=== PATIENT | female | born 1985 | race Caucasian/White ===

== ENCOUNTER 2016-09-28 08:30 | Emergency (ER) | payer OTHER ==
[2016-09-28 08:49] VITALS: BP 133/77
--- NOTE | 2016-09-28 09:21 | UC ---
Throat Pain/Nasal Preet HPI - HPI Summary HPI Summary: sever sore throat x 3 days + fever, chills, body aches, no cough , no nasal congestion . - History of Current Complaint Chief Complaint: UCRespiratory Stated Complaint: SORE THROAT Time Seen by Provider: 09/28/16 09:01 Hx Obtained From: Patient Hx Last Menstrual Period: 09/25/16 ?: No Onset/Duration: Gradual Onset, Lasting Days - 3, Still Present Severity: Severe Cough: None Associated Signs & Symptoms: Positive: Fever. Negative: Wheezing, Sinus Discomfort, Nasal Discharge - Allergies/Home Medications Allergies/Adverse Reactions: Allergies Allergy/AdvReac Type Severity Reaction Status Date / Time No Known Allergies Allergy Verified 09/28/16 08:49 Home Medications: Home Medications [id number] [Nyquil Severe Cold/Flu 5-6.25-10-325 mg/15Ml] 1 liq PO BEDTIME PRN 09/28/16 [History Confirmed 09/28/16] PMH/Surg Hx/FS Hx/Imm Hx Endocrine History Of: Denies: Diabetes, Thyroid Disease, Hyperthyroidism, Hypothyroidism, Dyslipidemia Cardiovascular History Of: Denies: Cardiac Disorders, Hypertension, Pacemaker/ICD, Myocardial Infarction , Congestive Heart Failure, Atrial Fibrillation, Deep Vein Thrombosis, Bleeding Disorders Respiratory History Of: Denies: COPD, Asthma, Bronchitis, Pneumonia, Pulmonary Embolism GI/ History Of: Denies: Gastroesophageal Reflux, Ulcer, Gastrointestinal Bleed, Gall Bladder Disease, Kidney Stones, Diverticulitis, Renal Disease, Urosepsis Neurological History Of: Denies: TIA, CVA, Dementia, Seizures, Migraine Psychological History Of: Denies: Anxiety, Depression, Bipolar Disorder, Schizophrenia, Post Traumatic Stress Disorder Cancer History Of: Denies: Lung Cancer, Colorectal Cancer, Breast Cancer, Prostate Cancer, Cervical Cancer - Surgical History Surgical History: Yes Surgery Procedure, Year, and Place: Right knee surgery and tubal ligation, carpal tunnel - Family History Known Family History: Negative: Cardiac Disease, Respiratory Disease - Social History Alcohol Use: None Substance Use Type: None Smoking Status (MU): Current Some Day Smoker Type: Cigars Amount Used/How Often: 2 cigars daily Have You Smoked in the Last Year: Yes - smokes cigars x 5 years Household Exposure Type: Cigars Review of Systems Constitutional: Fever, Chills, Fatigue Skin: Negative Eyes: Negative ENT: Sore Throat Respiratory: Negative Cardiovascular: Negative Gastrointestinal: Negative Musculoskeletal: Myalgia All Other Systems Reviewed And Are Negative: Yes Physical Exam Triage Information Reviewed: Yes Appearance: Well-Appearing, Well-Nourished, Pain Distress Vital Signs: Initial Vital Signs Temp 99.2 F 09/28/16 08:43 Pulse 116 09/28/16 08:43 Resp 20 09/28/16 08:43 BP 133/77 09/28/16 08:43 Pulse Ox 98 09/28/16 08:43 Vital Signs Reviewed: Yes Eye Exam: Normal Eyes: Positive: Conjunctiva Clear ENT: Positive: Normal ENT inspection, Hearing grossly normal, Pharyngeal erythema, Tonsillar swelling, Tonsillar exudate. Negative: Nasal congestion, Nasal drainage, Trismus, Muffled/hoarse voice Neck exam: Normal Neck: Positive: Supple, Nontender, Enlarged Nodes @ - very enlarged cervical lymphadenopathy Respiratory Exam: Normal Respiratory: Positive: Chest non-tender, Lungs clear, Normal breath sounds Cardiovascular: Positive: No Murmur, Pulses Normal, Tachycardia Abdominal Exam: Normal Abdomen Description: Positive: Nontender, Soft Throat Pain/Nasal Course/Dx - Differential Dx/Diagnosis Provider Diagnoses: strep pharyngitis Discharge - Discharge Plan Condition: Stable Disposition: HOME Prescriptions: Amoxicillin (*) 875 mg PO BID #20 tab Patient Education Materials: Strep Throat (ED) Referrals: Laverne Merchant PA [Primary Care Provider] - 7 Days
== END 2016-09-28 09:45 | disposition home or self-care (01) ==
LOC: UCCORT 08:30
DX: J02.0 Streptococcal pharyngitis (principal); F17.210 Nicotine dependence, cigarettes, uncomplicated
CPT/HCPCS: 87651; 99212; G0463

== ENCOUNTER 2017-10-14 18:00 | Emergency (ER) | payer OTHER ==
[2017-10-14 18:34] VITALS: BP 148/76
--- NOTE | 2017-10-14 20:09 | ED ---
Lower Extremity - HPI Summary HPI Summary: 31 yr old female with the complaint of right ankle pain. Onset two weeks ago. She states she rolled her ankle. She states she has injured the same ankle in the past and did not come in earlier. She came in now because swelling and pain are not resolving with ice and rest. - History of Current Complaint Chief Complaint: UCLowerExtremity Stated Complaint: RIGHT ANKLE PAIN Time Seen by Provider: 10/14/17 19:38 Hx Last Menstrual Period: 08/20/17 Pain Intensity: 5 - Allergies/Home Medications Allergies/Adverse Reactions: Allergies Allergy/AdvReac Type Severity Reaction Status Date / Time No Known Allergies Allergy Verified 10/14/17 18:34 Home Medications: Home Medications Escitalopram Oxalate [Lexapro 20 mg] 20 mg PO DAILY 10/14/17 [History Confirmed 10/14/17] Gabapentin 300 mg PO TID 10/14/17 [History Confirmed 10/14/17] PMH/Surg Hx/FS Hx/Imm Hx Endocrine/Hematology History: Denies: Hx Diabetes, Hx Thyroid Disease Cardiovascular History: Denies: Hx Congestive Heart Failure, Hx Deep Vein Thrombosis, Hx Hypertension , Hx Myocardial Infarction, Hx Pacemaker/ICD Respiratory History: Denies: Hx Asthma, Hx Chronic Obstructive Pulmonary Disease (COPD), Hx Lung Cancer, Hx Pneumonia, Hx Pulmonary Embolism GI History: Denies: Hx Gall Bladder Disease, Hx Gastrointestinal Bleed, Hx Ulcer, Hx Urosepsis History: Denies: Hx Kidney Stones, Hx Renal Disease Neurological History: Denies: Hx Dementia, Hx Migraine, Hx Seizures, Hx Transient Ischemic Attacks (TIA) Psychiatric History: Denies: Hx Anxiety, Hx Depression, Hx Schizophrenia, Hx Bipolar Disorder - Surgical History Surgery Procedure, Year, and Place: Right knee surgery and tubal ligation, carpal tunnel Infectious Disease History: No Infectious Disease History: Denies: Hx Clostridium Difficile, Hx Hepatitis, Hx Human Immunodeficiency Virus (HIV), Hx of Known/Suspected MRSA, Hx Shingles, Hx Tuberculosis, Hx Known/ Suspected VRE, Hx Known/Suspected VRSA, History Other Infectious Disease, Traveled Outside the [place] in Last 30 Days - Family History Known Family History: Negative: Cardiac Disease, Respiratory Disease - Social History Alcohol Use: None Substance Use Type: Reports: None Smoking Status (MU): Never Smoked Tobacco Type: Cigars Amount Used/How Often: 2 cigars daily Have You Smoked in the Last Year: Yes - smokes cigars x 5 years Review of Systems Constitutional: Negative Positive: Other - ankle swelling pain. All Other Systems Reviewed And Are Negative: Yes Physical Exam Triage Information Reviewed: Yes Vital Signs On Initial Exam: Initial Vitals Temp Pulse Resp BP Pulse Ox 97.6 F 74 18 148/76 100 10/14/17 18:31 10/14/17 18:31 10/14/17 18:31 10/14/17 18:31 10/14/17 18:31 Vital Signs Reviewed: Yes Appearance: Positive: Well-Appearing, No Pain Distress Skin: Positive: Warm, Skin Color Reflects Adequate Perfusion Head/Face: Positive: Normal Head/Face Inspection Eyes: Positive: EOMI Neck: Positive: Nontender Cardiovascular: Positive: Pulses are Symmetrical in both Upper and Lower Extremities - intact DP/PT Musculoskeletal: Positive: Strength/ROM Intact, Other - STS over the right Lateral malleolus. Mild tender over same area. Mild tender over base of 5th metatarsal. No tenderness over the proximal fibula or over the medial malleolus. Neurological: Positive: Sensory/Motor Intact, Alert, Oriented to Person Place, Time, CN Intact II-III Psychiatric: Positive: Normal - [place] Coma Scale Best Eye Response: 4 - Spontaneous Best Motor Response: 6 - Obeys Commands Best Verbal Response: 5 - Oriented Coma Scale Total: 15 Diagnostics - Vital Signs Vital Signs Temp Pulse Resp BP Pulse Ox 10/14/17 18:31 97.6 F 74 18 148/76 100 - Laboratory Lab Statement: Any lab studies that have been ordered have been reviewed, and results considered in the medical decision making process. - Radiology right ankle, foot Xray Interpretation: Positive (See Comments) - lateral supporting ligament injury Radiology Interpretation Completed By: Radiologist Lower Extremity Course/Dx - Course Course Of Treatment: 31 yr old with ankle sprain. crutches, splint. Refer to ortho for follow up and her PMD for bp check - Diagnoses Provider Diagnoses: Right ankle sprain Discharge - Discharge Plan Condition: Good Disposition: HOME Patient Education Materials: Ankle Sprain (ED), Hypertension (ED) Referrals: Laverne Merchant PA [Primary Care Provider] - Carson Brown MD [Medical Doctor] - 1 Day Additional Instructions: You must follow up with orthopedic surgery as soon as possible as you have a ligament tear in your ankle. You need to be further evaluated and could require MRI and surgery. Do not delay seeing orthopedic surgery. wear your splint and use the crutches until you are seen by the specialist.
--- NOTE | 2017-10-14 20:37 | RAD ---
Indication: RIGHT ankle pain and swelling following injury 2 weeks ago. Lateral aspect pain. Comparison: No relevant prior exams available on the [facility] [place] for comparison. Technique: AP, mortise, and lateral views RIGHT ankle. AP, lateral, and oblique views RIGHT foot. Report: Soft tissue swelling most prominent over the lateral malleolus. Suggestion of talocrural joint effusion. No fracture or osteochondral lesion evident at the ankle. Os trigonum noted. Negative for fracture at the foot. Normal articular alignment throughout. IMPRESSION: Consider lateral supporting ligament injury given magnitude of soft tissue swelling and suggestion of talocrural joint effusion.
--- NOTE | 2017-10-14 20:37 | RAD ---
Indication: RIGHT ankle pain and swelling following injury 2 weeks ago. Lateral aspect pain. Comparison: No relevant prior exams available on the [facility] [place] PACS for comparison. Technique: AP, mortise, and lateral views RIGHT ankle. AP, lateral, and oblique views RIGHT foot. Report: Soft tissue swelling most prominent over the lateral malleolus. Suggestion of talocrural joint effusion. No fracture or osteochondral lesion evident at the ankle. Os trigonum noted. Negative for fracture at the foot. Normal articular alignment throughout. IMPRESSION: Consider lateral supporting ligament injury given magnitude of soft tissue swelling and suggestion of talocrural joint effusion.
== END 2017-10-14 21:04 | disposition home or self-care (01) ==
LOC: UCCORT 18:00
DX: S93.401A Sprain of unspecified ligament of right ankle, initial encounter (principal); X50.9XXA Other and unspecified overexertion or strenuous movements or postures, initial encounter; Y92.9 Unspecified place or not applicable; F17.290 Nicotine dependence, other tobacco product, uncomplicated
CPT/HCPCS: 99213; G0463

== ENCOUNTER 2018-04-05 10:08 | Emergency (ER) | payer OTHER ==
[2018-04-05 10:43] VITALS: BP 132/77
--- NOTE | 2018-04-05 11:01 | UC ---
Skin Complaint HPI - HPI Summary HPI Summary: Has had sore, red, irritated, weeping rash under bilat breasts for over a month. Tried OTC yeast, abx, powders, and other drying agents without relief. Ate an belarusian muffin and chocolate milk approx 2 hours ago. - History of Current Complaint Chief Complaint: UCRash Time Seen by Provider: 04/05/18 10:41 Stated Complaint: SKIN CONCERN ON CHEST AREA Hx Obtained From: Patient Hx Last Menstrual Period: 04/03/18 ?: No Onset/Duration: Gradual Onset, Lasting Weeks Timing: Constant Pain Intensity: 5 Location: Discrete Character: Redness, Painful Aggravating Factor(s): Clothing, Wet Conditions, Humidity Alleviating Factor(s): Nothing Associated Signs & Symptoms: Positive: Rash - Allergy/Home Medications Allergies/Adverse Reactions: Allergies Allergy/AdvReac Type Severity Reaction Status Date / Time No Known Allergies Allergy Verified 04/05/18 10:37 Review of Systems Constitutional: Negative Skin: Rash Eyes: Negative ENT: Negative Respiratory: Negative Cardiovascular: Negative Gastrointestinal: Negative Genitourinary: Negative Motor: Negative Neurovascular: Negative Musculoskeletal: Negative Neurological: Negative Psychological: Negative Is Patient Immunocompromised?: No All Other Systems Reviewed And Are Negative: Yes PMH/Surg Hx/FS Hx/Imm Hx Psychological History: Depression - Surgical History Surgical History: Yes Surgery Procedure, Year, and Place: L5S1 Fusion, 2017, [place]; Right Carpal Tunnel, 2013, [place]; Tubal Ligation, 2009, [place]; Right Knee Arthroscopy, 2006, [place] - Family History Known Family History: Negative: Cardiac Disease, Respiratory Disease - Social History Lives: With Family Alcohol Use: Occasionally Substance Use Type: None Smoking Status (MU): Light Every Day Tobacco Smoker Type: Cigars Amount Used/How Often: 2 cigars/weekly Length of Time of Smoking/Using Tobacco: Since Age 18 Have You Smoked in the Last Year: Yes - smokes cigars x 5 years Household Exposure Type: Cigars Physical Exam Triage Information Reviewed: Yes Appearance: Well-Appearing, Obese Vital Signs: Initial Vital Signs Temp 97.1 F 04/05/18 10:36 Pulse 86 04/05/18 10:36 Resp 18 04/05/18 10:36 BP 132/77 04/05/18 10:36 Pulse Ox 99 04/05/18 10:36 Vital Signs Reviewed: Yes Eye Exam: Normal Eyes: Positive: Conjunctiva Clear ENT Exam: Normal ENT: Positive: Normal ENT inspection, Hearing grossly normal, Pharynx normal, TMs normal Neck exam: Normal Neck: Positive: Supple, Nontender, No Lymphadenopathy Respiratory Exam: Normal Respiratory: Positive: Chest non-tender, Lungs clear, Normal breath sounds, No respiratory distress, No accessory muscle use Cardiovascular Exam: Normal Cardiovascular: Positive: RRR, No Murmur Neurological Exam: Normal Neurological: Positive: Alert Psychological Exam: Normal Skin Exam: Other - dark red, macerated rash concentrated in skin folds under bilat breasts, with satellite lesions. Diagnostics - Laboratory Diagnostic Studies Completed/Ordered: Blood glucose = 129 approx 2 hours after a glucose load Course/Dx - Diagnoses Provider Diagnoses: Intertrigo under breasts. Elevated blood pressure due to discomfort Discharge - Sign-Out/Discharge Documenting (check all that apply): Patient Departure - Discharge Plan Condition: Stable Disposition: HOME Prescriptions: Fluconazole [Diflucan 150 MG (NF)] 150 mg PO ONCE #6 tab Nystatin/Triamcinolon OINT(NF) [Mycolog Oint*] 1 applic TOPICAL DAILY #30 gm Patient Education Materials: Skin Yeast Infection (ED) Referrals: Laverne Merchant PA [Primary Care Provider] - 2 Weeks Additional Instructions: If symptoms do not improve with this therapy and close attention to skin care, you will need to follow up with your primary care provider. After the skin clears up I recommend using coconut oil as a skin protectant. - Billing Disposition and Condition Condition: STABLE Disposition: Home
== END 2018-04-05 11:10 | disposition home or self-care (01) ==
LOC: UCCORT 10:08
DX: L30.4 Erythema intertrigo (principal); R03.0 Elevated blood-pressure reading, without diagnosis of hypertension; F17.290 Nicotine dependence, other tobacco product, uncomplicated
CPT/HCPCS: 99212; G0463

== ENCOUNTER 2019-04-01 10:28 | Emergency (ER) | payer OTHER ==
[2019-04-01 10:46] VITALS: BP 132/72
--- NOTE | 2019-04-01 11:09 | UC ---
Knee Pain HPI - HPI Summary HPI Summary: 33-year-old female who fell onto her right knee 2 weeks ago. She continues to have pain more on the medial aspect. - History of Current Complaint Chief Complaint: UCLowerExtremity Stated Complaint: RT KNEE INJURY Time Seen by Provider: 04/01/19 11:06 Hx Obtained From: Patient Hx Last Menstrual Period: 03/15/19 ?: No Onset/Duration: Sudden Onset Severity Initially: Moderate Severity Currently: Mild Location Of Injury: Right knee anterior portion. Pain Intensity: 5 Character: Aching Aggravating Factor(s): Movement Alleviating Factor(s): Rest Associated Signs And Symptoms: Positive: Negative Able to Bear Weight: Yes - Allergies/Home Medications Allergies/Adverse Reactions: Allergies Allergy/AdvReac Type Severity Reaction Status Date / Time No Known Allergies Allergy Verified 04/01/19 10:47 Home Medications: Home Medications Naproxen Sodium [Aleve] 1 tab PO ONCE 04/01/19 [History Confirmed 04/01/19] PMH/Surg Hx/FS Hx/Imm Hx Previously Healthy: Yes - Surgical History Surgical History: Yes Surgery Procedure, Year, and Place: L5S1 Fusion, 2017, [place]; Right Carpal Tunnel, 2013, [place]; Tubal Ligation, 2009, [place]; Right Knee Arthroscopy, 2006, [place] - Family History Known Family History: Negative: Cardiac Disease, Respiratory Disease - Social History Alcohol Use: None Substance Use Type: None Smoking Status (MU): Light Every Day Tobacco Smoker Type: Cigars Amount Used/How Often: 1 cigar daily Length of Time of Smoking/Using Tobacco: Since Age 18 Have You Smoked in the Last Year: Yes - smokes cigars x 5 years Household Exposure Type: Cigars Review of Systems All Other Systems Reviewed And Are Negative: Yes Musculoskeletal: Positive: Other: - Patient complains of mild pain to the medial aspect of her right knee occasionally not continuously. Is Patient Immunocompromised?: No Physical Exam Triage Information Reviewed: Yes Appearance: Well-Appearing, No Pain Distress, Well-Nourished Vital Signs: Initial Vital Signs Temp 97.4 F 04/01/19 10:41 Pulse 84 04/01/19 10:41 Resp 16 04/01/19 10:41 BP 132/72 04/01/19 10:41 Pulse Ox 100 04/01/19 10:41 Vital Signs Reviewed: Yes Musculoskeletal: Positive: Strength Intact, ROM Intact, Other: - Minimal pain on palpation to the medial aspect of the right knee. Patellar and knee ligaments are intact. No deformity, erythema, bruising, or swelling. Full range of motion. Neurological: Positive: Alert, Muscle Tone Normal, Other: - Good peripheral pulses neuro sensation and capillary refill. Psychological Exam: Normal Skin Exam: Normal Knee Pain Course/Dx - Course Course Of Treatment: Right knee x-ray:Report: Negative for joint effusion, fracture, or malalignment. Chronic accessory ossicle at the superior lateral margin of the patella as on the prior exam. Mild osteophytosis and moderate joint space narrowing at the medial joint compartment increased over the 2006 exam. Unremarkable soft tissue contours. IMPRESSION: #. No traumatic injury of the RIGHT knee evident. #. 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 The patient sees a knee and joint specialist because of a history of arthritis and she is to follow-up with them if she has continued pain over the next couple of weeks. - Differential Dx/Diagnosis Provider Diagnosis: Knee pain Discharge - Sign-Out/Discharge Documenting (check all that apply): Patient Departure All imaging exams completed and their final reports reviewed: Yes - Discharge Plan Condition: Good Disposition: HOME Patient Education Materials: Knee Sprain (DC) Referrals: Silvestre Wong MD [Primary Care Provider] - Abbie Byrd MD [Medical Doctor] - Additional Instructions: Apply heat to the sore area 4-6 times a day for about 20 minutes each time. May take ibuprofen as directed for pain. Definite follow-up with the orthopedist if you continue to have any pain. - Billing Disposition and Condition Condition: GOOD Disposition: Home
== END 2019-04-01 11:59 | disposition home or self-care (01) ==
LOC: UCCORT 10:28
DX: M25.561 Pain in right knee (principal); F17.290 Nicotine dependence, other tobacco product, uncomplicated
CPT/HCPCS: 99211; G0463

== ENCOUNTER 2019-06-16 14:50 | Emergency (ER) | payer OTHER ==
[2019-06-16 15:25] VITALS: BP 120/80
--- NOTE | 2019-06-16 16:47 | UC ---
Respiratory Complaint HPI - HPI Summary HPI Summary: 33-year-old woman comes in with a chief complaint of 2 weeks of upper rest or tract infection symptoms. Primary complaint is a cough or chest congestion. She reports she's been having wheezing. She is a smoker. She had asthma when she was child. No recent diagnosis of asthma or COPD. She has chest congestion she is unable to get the sputum out. She's been having hot flashes and chills recently. - History of Current Complaint Chief Complaint: UCGeneralIllness Stated Complaint: COUGH/CHEST CONGESTION Time Seen by Provider: 06/16/19 16:40 Hx Last Menstrual Period: 06/12/19 Pain Intensity: 5 - Allergies/Home Medications Allergies/Adverse Reactions: Allergies Allergy/AdvReac Type Severity Reaction Status Date / Time No Known Allergies Allergy Verified 06/16/19 15:25 PMH/Surg Hx/FS Hx/Imm Hx Previously Healthy: Yes - Surgical History Surgical History: Yes Surgery Procedure, Year, and Place: L5S1 Fusion, 2016, [place]; Right Carpal Tunnel, 2013, [place]; Tubal Ligation, 2009, [place]; Right Knee Arthroscopy, 2006, [place] - Family History Known Family History: Negative: Cardiac Disease, Respiratory Disease - Social History Alcohol Use: None Substance Use Type: None Smoking Status (MU): Light Every Day Tobacco Smoker Type: Cigars Amount Used/How Often: 1 cigar daily Length of Time of Smoking/Using Tobacco: Since Age 18 Have You Smoked in the Last Year: Yes - smokes cigars x 5 years Household Exposure Type: Cigars Review of Systems All Other Systems Reviewed And Are Negative: Yes Constitutional: Positive: Chills, Other - SEE HPI Skin: Positive: Negative Eyes: Positive: Negative ENT: Positive: Other - SEE HPI Respiratory: Positive: Cough, Other - SEE HPI Cardiovascular: Positive: Negative Gastrointestinal: Positive: Negative Motor: Positive: Negative Neurovascular: Positive: Negative Musculoskeletal: Positive: Negative Neurological: Positive: Negative Psychological: Positive: Negative Is Patient Immunocompromised?: No Physical Exam Triage Information Reviewed: Yes Appearance: No Pain Distress, Well-Nourished, Ill-Appearing - MILD Vital Signs: Initial Vital Signs Temp 97.7 F 06/16/19 15:21 Pulse 98 06/16/19 15:21 Resp 16 06/16/19 15:21 BP 120/80 06/16/19 15:21 Pulse Ox 100 06/16/19 15:21 Vital Signs Reviewed: Yes Eye Exam: Normal Eyes: Positive: Conjunctiva Clear ENT: Positive: Pharyngeal erythema, TMs normal Neck: Positive: Supple Respiratory: Positive: Lungs clear, Normal breath sounds, No respiratory distress, Other: - Positive cough Cardiovascular: Positive: RRR Musculoskeletal: Positive: Strength Intact, ROM Intact Neurological: Positive: Alert, Muscle Tone Normal Psychological: Positive: Normal Response To Family, Age Appropriate Behavior Skin Exam: Normal Respiratory Course/Dx - Differential Dx/Diagnosis Provider Diagnosis: Bronchitis with bronchospasm Discharge ED - Sign-Out/Discharge Documenting (check all that apply): Patient Departure All imaging exams completed and their final reports reviewed: No Studies - Discharge Plan Condition: Stable Disposition: HOME Prescriptions: Albuterol HFA INHALER* [Ventolin HFA Inhaler*] 2 puff INH Q4H PRN #1 mdi PRN Reason: Wheezing Azithromyxin MOLINA (NF) [Z-Molina (Zithromax) 250 mg tabs #6] 2 tab PO .TODAY, THEN 1 DAILY #6 tab GuaiFENesin DM* [Robitussin DM*] 10 ml PO Q4H PRN #180 ml PRN Reason: Cough Patient Education Materials: Acute Bronchitis (ED), Bronchospasm (ED) Referrals: Silvestre Wong MD [Primary Care Provider] - Additional Instructions: FOLLOW UP WITH YOUR DOCTOR IF NOT COMPLETELY IMPROVED. GET REEVALUATED SOONER IF NOT IMPROVING OR YOUR CONDITION WORSENS OR ANY QUESTIONS OR CONCERNS. - Billing Disposition and Condition Condition: STABLE Disposition: Home
== END 2019-06-16 16:53 | disposition home or self-care (01) ==
LOC: UCCORT 14:50
DX: J40 Bronchitis, not specified as acute or chronic (principal); J98.01 Acute bronchospasm; F17.210 Nicotine dependence, cigarettes, uncomplicated
CPT/HCPCS: 99212; G0463

== ENCOUNTER 2019-07-02 08:53 | Emergency (ER) | payer OTHER ==
[2019-07-02 09:15] VITALS: BP 117/64
[2019-07-02] MEDS ORDERED: Ipratropium 0.5MG/2.5ML NEB* 0.5 MG/2.5 ML NEB.SOLN INH ONE (10:41)
[2019-07-02] MEDS ORDERED: Albuterol 2.5 MG/3 ML NEB.SOL* (0.083%) INH ONE (10:41)
--- NOTE | 2019-07-02 10:46 | UC ---
Respiratory Complaint HPI - HPI Summary HPI Summary: 33 yo female with 4 weeks hx of cough and wheezing Cough and wheezing worse at night no f/c no CP no n/v/d had zpak no relief no improvement with MDI - History of Current Complaint Chief Complaint: UCGeneralIllness Stated Complaint: COUGH Time Seen by Provider: 07/02/19 10:30 Hx Obtained From: Patient Hx Last Menstrual Period: 06/06/19 Onset/Duration: Sudden Onset, Lasting Weeks Timing: Constant Severity Initially: Mild Severity Currently: Moderate Pain Intensity: 4 Pain Scale Used: 0-10 Numeric Character: Cough: Nonproductive Aggravating Factors: Deep Breaths, Recumbent Position Alleviating Factors: Spontaneous Resolution, Nothing Associated Signs And Symptoms: Positive: Wheezing. Negative: Dyspnea, Fever, Chills, Pleuritic Chest Pain, Hemoptysis, Dizziness, Calf Pain, Calf Swelling, Edema, URI, Nasal Congestion, Hoarseness, Sinus Discomfort - Allergies/Home Medications Allergies/Adverse Reactions: Allergies Allergy/AdvReac Type Severity Reaction Status Date / Time No Known Allergies Allergy Verified 07/02/19 09:15 PMH/Surg Hx/FS Hx/Imm Hx Previously Healthy: Yes Respiratory History: Asthma - Surgical History Surgical History: Yes Surgery Procedure, Year, and Place: L5S1 Fusion, 2017, [place]; Right Carpal Tunnel, 2013, [place]; Tubal Ligation, 2009, [place]; Right Knee Arthroscopy, 2006, [place] - Family History Known Family History: Positive: Hypertension Negative: Cardiac Disease, Respiratory Disease - Social History Alcohol Use: None Substance Use Type: None Smoking Status (MU): Light Every Day Tobacco Smoker Type: Cigars Amount Used/How Often: 1 cigar daily Length of Time of Smoking/Using Tobacco: Since Age 18 Have You Smoked in the Last Year: Yes - smokes cigars x 5 years Household Exposure Type: Cigars Review of Systems All Other Systems Reviewed And Are Negative: Yes Constitutional: Positive: Negative Skin: Positive: Negative Eyes: Positive: Negative ENT: Positive: Nasal Discharge, Sinus Congestion Respiratory: Positive: Cough, Other - wheezing Cardiovascular: Positive: Negative Gastrointestinal: Positive: Negative Genitourinary: Positive: Negative Motor: Positive: Negative Neurovascular: Positive: Negative Musculoskeletal: Positive: Negative Neurological: Positive: Negative Psychological: Positive: Negative Physical Exam Triage Information Reviewed: Yes Appearance: Well-Appearing, No Pain Distress, Well-Nourished Vital Signs: Initial Vital Signs Temp 98.4 F 07/02/19 09:11 Pulse 80 07/02/19 09:11 Resp 19 07/02/19 09:11 BP 117/64 07/02/19 09:11 Pulse Ox 99 07/02/19 09:11 Vital Signs Reviewed: Yes Eyes: Positive: Conjunctiva Clear ENT: Positive: Hearing grossly normal, TMs normal, Uvula midline. Negative: Nasal congestion, Nasal drainage, Tonsillar swelling, Tonsillar exudate, Trismus , Muffled voice, Hoarse voice Dental Exam: Normal Neck: Positive: Supple, Nontender, No Lymphadenopathy Respiratory: Positive: No respiratory distress, No accessory muscle use, Wheezing - with forced expiration, Other: - bronchospastic cough Cardiovascular: Positive: RRR, No Murmur Bowel Sounds: Positive: Present Musculoskeletal: Positive: ROM Intact, No Edema Neurological: Positive: Alert Psychological Exam: Normal Skin Exam: Normal Diagnostics - Radiology No standard instances Radiology Interpretation Completed By: Radiologist Summary of Radiographic Findings: NAD Re-Evaluation - Re-Evaluation First Eval Re-Evaluation Time: :19 Change: Improved - mild improvement Respiratory Course/Dx - Differential Dx/Diagnosis Provider Diagnosis: Bronchospasm Discharge ED - Sign-Out/Discharge Documenting (check all that apply): Patient Departure All imaging exams completed and their final reports reviewed: Yes - Discharge Plan Condition: Stable Disposition: HOME Prescriptions: predniSONE TAB* [Deltasone 20 MG TAB*] 40 mg PO DAILY #10 tab Patient Education Materials: Bronchospasm (ED) Referrals: Silvestre Wong MD [Primary Care Provider] - 7 Days Additional Instructions: use yor inhaler 2 puffs 4x day x 7 days stop smoking recheck next week if not improved you may need formal pulmonary function tests - Billing Disposition and Condition Condition: STABLE Disposition: Home
[2019-07-02] MEDS ORDERED: predniSONE TAB* 20 MG PO ONE (11:17)
== END 2019-07-02 11:30 | disposition home or self-care (01) ==
LOC: UCCORT 08:53
DX: J45.909 Unspecified asthma, uncomplicated (principal); R09.81 Nasal congestion; R09.89 Other specified symptoms and signs involving the circulatory and respiratory systems; F17.290 Nicotine dependence, other tobacco product, uncomplicated
CPT/HCPCS: 71046; 99213; G0463; J7512

== ENCOUNTER 2019-10-03 09:32 | Emergency (ER) | payer OTHER ==
[2019-10-03 09:50] VITALS: BP 118/77
--- NOTE | 2019-10-03 10:05 | UC ---
FLU HPI - HPI Summary HPI Summary: 33yo female presenting with "body aches all over" and nonproductive cough x4 days. Notes emesis 3 days ago. Denies abdominal pain and diarrhea. Denies sob and wheezing. Notes decreased appetite. Taking tylenol, ibuprofen, and robitussin without relief. - History of Current Complaint Chief Complaint: UCGeneralIllness Stated Complaint: FATIGUE,COUGH Hx Obtained From: Patient Hx Last Menstrual Period: 06/06/19 Pain Intensity: 7 Pain Scale Used: 0-10 Numeric - Allergy/Home Medications Allergies/Adverse Reactions: Allergies Allergy/AdvReac Type Severity Reaction Status Date / Time No Known Allergies Allergy Verified 10/03/19 09:50 PMH/Surg Hx/FS Hx/Imm Hx - Surgical History Surgical History: Yes Surgery Procedure, Year, and Place: L5S1 Fusion, 2016, [place]; Right Carpal Tunnel, 2013, [place]; Tubal Ligation, 2009, [place]; Right Knee Arthroscopy, 2006, [place] - Family History Known Family History: Positive: Hypertension Negative: Cardiac Disease, Respiratory Disease - Social History Alcohol Use: None Substance Use Type: None Smoking Status (MU): Light Every Day Tobacco Smoker Type: Cigars Amount Used/How Often: 1 cigar daily Length of Time of Smoking/Using Tobacco: Since Age 18 Have You Smoked in the Last Year: Yes - smokes cigars x 5 years Household Exposure Type: Cigars Review of Systems All Other Systems Reviewed And Are Negative: Yes Constitutional: Positive: Fatigue ENT: Positive: Sore Throat, Sinus Congestion Respiratory: Positive: Cough. Negative: Shortness Of Breath Cardiovascular: Positive: Negative Gastrointestinal: Positive: Vomiting - 3 days ago. Negative: Abdominal Pain, Diarrhea, Nausea Musculoskeletal: Positive: Myalgia Neurological/Mental Status: Positive: Negative Physical Exam - Summary Physical Exam Summary: Vital Signs Reviewed: Yes A+Ox3, obese Eyes: Conjunctiva Clear ENT: Hearing grossly normal, TM x 2 clear, moist, uvula midline, no exudate, + pharyngeal erythema Neck: Positive: Supple Respiratory: Positive: No respiratory distress, No accessory muscle use + CTA throughout no w/r Cardiovascular: RRR nl s1, s2 no m/r Musculoskeletal Exam: MAIN x 4 without difficulty Neurological: Positive: Alert Psychological: Positive: decreased age appropriate behavior, inconsolable Skin: Positive: no rash, no ecchymosis Vital Signs: Initial Vital Signs Temp 98.8 F 10/03/19 09:47 Pulse 110 10/03/19 09:47 Resp 20 10/03/19 09:47 BP 118/77 10/03/19 09:47 Pulse Ox 95 10/03/19 09:47 Lab Results 10/03/19 Range/Units 10:37 Influenza A (Rapid) Positive H (Negative) Lab Results 10/03/19 10/03/19 Range/Units 10:37 10:40 Influenza A (Rapid) Positive H (Negative) Group A Strep Rapid Negative (Negative) Flu Course/Dx - Course Course Of Treatment: Positive influenza A. Discussed influenza and symptomatic treatment with patient. Instructed to follow up with PCP if symptoms worsen or do not resolve. Patient voiced understanding and agreed with treatment plan. - Differential Dx/Diagnosis Provider Diagnosis: Influenza A Discharge ED - Sign-Out/Discharge Documenting (check all that apply): Patient Departure All imaging exams completed and their final reports reviewed: No Studies - Discharge Plan Condition: Stable Disposition: HOME Patient Education Materials: Influenza (ED) Referrals: Silvestre Wong MD [Primary Care Provider] - If Needed Additional Instructions: You tested positive for influenza today. You may continue with motrin and tylenol as directed for fever and pain relief. Get plenty of rest and increase your fluid intake. Follow up with your primary care provider if symptoms worsen or do not resolve within 5-7 days. - Billing Disposition and Condition Condition: STABLE Disposition: Home
[2019-10-03 10:41] LABS: Influenza A Molecular POSITIVE (Negative)
== END 2019-10-03 10:56 | disposition home or self-care (01) ==
LOC: UCCORT 09:32
DX: J10.1 Influenza due to other identified influenza virus with other respiratory manifestations (principal); F17.290 Nicotine dependence, other tobacco product, uncomplicated
CPT/HCPCS: 87651; 99211; G0463